=== PATIENT | female | born 1975 | race African-American/Black ===

== ENCOUNTER 2018-10-17 11:49 | Inpatient (IN) | payer OTHER | END 2018-10-31 07:50 | disposition home or self-care (01) | LOC: Y3E 10-23 10:55 → YASAS 11:49 → Y3E 15:48 | PROC: HZ42ZZZ Group Counseling for Substance Abuse Treatment, Cognitive-Behavioral (ICD-10-PCS; principal; 2018-10-17) | DX: F14.20 Cocaine dependence, uncomplicated (principal); F43.10 Post-traumatic stress disorder, unspecified; F31.89 Other bipolar disorder; J45.901 Unspecified asthma with (acute) exacerbation; M54.41 Lumbago with sciatica, right side; M54.5 Low back pain; G89.29 Other chronic pain; J02.9 Acute pharyngitis, unspecified; Z86.2 Personal history of diseases of the blood and blood-forming organs and certain disorders involving the immune mechanism ==